=== PATIENT | female | born 1995 | race Caucasian/White ===

== ENCOUNTER 2018-06-24 18:15 | Emergency (ER) | payer SELFPAY ==
[2018-06-24 18:38] VITALS: O2SAT 97
--- NOTE | 2018-06-24 18:48 | ERPHSYRPT ---
- History of Present Illness Time Seen by Provider: 06/24/18 18:35 Source: patient, family Exam Limitations: no limitations Patient Subjective Stated Complaint: pt states she was sitting on her couch today when she had sharp, shooting back down both sides of her lower back, states pain is intermittent in nature reports she is 2 weeks and is concerned. states her initial OB appt is Jul [address] Leon. pt denies injury , pt denies heavy lifting or straining. pt denies symptoms. pt denies any vaginal bleeding or discharge. Triage Nursing Assessment: pt is aox3, pupils perrl, afebrile, resps easy and non labored, radial pulses strong and equal, abd soft non tender, pt skin pink warm dry. pt sensation and ROM intact. pt ambulated to trt room with no difficulties. Physician History: patient developed a sharp pain in upper lower back; lasted 2-3 minutes while sitting; no recent falls or injuries; no hx of back issues other then intermittant lower back pain; no numbness; no weakness; no sensory changes; she is 2 weeks ; EDC ?; no vag bleeding; last intercourse 4 weeks ago ; no or GI changes; otherwise healthy Timing/Duration: today, resolved prior to arrival, sudden, improved Method of Injury: other (occurred while sitting) Quality: radiating (to lower back midline), sharp Back Pain Location: lumbar spine Severity of Pain-Max: moderate Severity of Pain-Current: none Modifying Factors: Improves With: nothing Associated Symptoms: denies symptoms Previous symptoms: no prior history Allergies/Adverse Reactions: tramadol Allergy (Mild, Verified 06/24/18 18:39) Swelling Hx Tetanus, Diphtheria Vaccination/Date Given: Yes Hx Influenza Vaccination/Date Given: No Hx Pneumococcal Vaccination/Date Given: No Immunizations Up to Date: Yes - Review of Systems Constitutional: No Symptoms Eyes: No Symptoms Ears, Nose, & Throat: No Symptoms Respiratory: No Cough, No Dyspnea, No Wheezing Cardiac: No Chest Pain, No Palpitations, No Syncope Abdominal/Gastrointestinal: No Abdominal Pain, No Nausea, No Vomiting, No Diarrhea Genitourinary Symptoms: No Dysuria, No Hematuria, No Incontinence, No Urinary Retention, No Flank Pain Musculoskeletal: Back Pain, No Arthralgias, No Neck Pain, No Fall, No Injury Skin: No Symptoms Neurological: No Dizziness, No Focal Weakness, No Gait Changes, No Headache, No Paralysis, No Parasthesia, No Seizure, No Sensory Changes Psychological: No Symptoms - Past Medical History Pertinent Past Medical History: Yes Neurological History: No Pertinent History ENT History: No Pertinent History Cardiac History: No Pertinent History Respiratory History: No Pertinent History Endocrine Medical History: No Pertinent History Musculoskeletal History: No Pertinent History GI Medical History: Gallbladder Disease History: No Pertinent History Psycho-Social History: No Pertinent History Female Reproductive Disorders: No Pertinent History Other Medical History: GESTATIONAL DM - Past Surgical History Past Surgical History: Yes Neuro Surgical History: No Pertinent History Cardiac: No Pertinent History Respiratory: No Pertinent History Gastrointestinal: Cholecystectomy Genitourinary: No Pertinent History Musculoskeletal: No Pertinent History Female Surgical History: Section, Other Other Surgical History: REMOVED FIBROID MASS FROM LEFT BREAST. x 2 - Social History Smoking Status: Former smoker Exposure to second hand smoke: Yes Alcohol Use: None Drug Use: none Patient Lives Alone: No Significant Family History: no pertinent family hx - Female History Hx Last Menstrual Period: 05/18/19 Hx Now: Yes - Nursing Vital Signs Nursing Vital Signs: Initial Vital Signs Temperature 98.5 F 06/24/18 18:24 Pulse Rate 88 06/24/18 18:24 Respiratory Rate 20 06/24/18 18:24 Blood Pressure 123/73 06/24/18 18:24 O2 Sat by Pulse Oximetry 97 06/24/18 18:24 Pain Scale Pain Intensity 0 - Physical Exam General Appearance: no apparent distress, alert, obese Eye Exam: PERRL/EOMI, eyes nml inspection Ears, Nose, Throat Exam: normal ENT inspection, TMs normal, pharynx normal, moist mucous membranes Neck Exam: normal inspection, non-tender, supple, full range of motion, No meningismus Respiratory Exam: normal breath sounds, lungs clear, airway intact, No chest tenderness, No respiratory distress Cardiovascular Exam: regular rate/rhythm, normal heart sounds, normal peripheral pulses, No murmur Gastrointestinal Exam: soft, normal bowel sounds, No tenderness, No guarding, No rebound, No organomegaly Pelvic Exam: deferred Rectal Exam: deferred Back Exam: normal range of motion, muscle spasm (with ST tenderness where pain was, duplicates), other (LS extension improves discomfort; straight leg raising good and = bilateral; good refelexes), No normal inspection (straightening with loss of Normal LS curve), No CVA tenderness, No vertebral tenderness, No rash Extremity Exam: normal inspection, normal range of motion, pelvis stable, No marybel's sign, No pedal edema Peripheral Pulses: carotid (R): 4+, carotid (L): 4+, femoral (R): 4+, femoral (L ): 4+, dorsalis-pedis (R): 4+, dorsalis-pedis (L): 4+ Neurologic Exam: alert, oriented x 3, cooperative, wire transfer clerk II-XII nml as tested, normal mood/affect, nml cerebellar function, nml station & gait Skin Exam: normal color, warm, dry, No rash, No petechiae SpO2 Interpretation: normal SpO2: 97 O2 Delivery: Room Air - Course Nursing assessment & vital signs reviewed: Yes - Progress Progress: improved Progress Note: 06/24/18 18:54 discussed findings; treatment plan discussed; instructions given; will follow up with lmd for ob Counseled pt/family regarding: diagnosis, need for follow-up - Departure Time of Disposition: 18:55 Departure Disposition: Home Clinical Impression: First trimester , Low back pain during Condition: Stable Critical Care Time: No Referrals: LAI LEON [Primary Care Provider] - Instructions: Low Back Pain (DC) Additional Instructions: rest; back support; follow up lmd recheck; tylenol prn Follow-up with family doctor as directed. Call for appointment. Return if any problems. If you smoke please stop. Call or follow up with your family doctor for assistance if you need it to stop. Please wear your seatbelt when driving. Have a nice day. Thank you for allowing us to participate in your care today. :o) Dr Manny Yu
[2018-06-24 19:10] VITALS: BP 113/67; PULSE 100
== END 2018-06-24 19:08 | disposition home or self-care (01) ==
LOC: ED 18:15
DX: O26.891 Other specified pregnancy related conditions, first trimester (principal); M54.5 Low back pain
CPT/HCPCS: 99283

== ENCOUNTER 2018-11-01 15:20 | Observation (INO) | payer OTHER ==
[2018-11-01 15:43] LABS: BASOPHIL % 0.3 % (0.0-0.4); Basophil (Absolute #) 0.03 (0-0.4); Eosinophil (Absolute #) 0.12 (0-0.5); Granulocyte Absolute (ANC) 8.69 (1.4-6.9); Granulocytes % 73.8 % (36.0-66.0); Hematocrit 29.3 % (35-47); Hemoglobin 9.5 gm/dl (12.0-16.0); Lymphocyte (Absolute #) 2.37 (1.0-4.6); Lymphocytes % 20.2 % (24.0-44.0); Mean Cell Volume 90.4 fl (78-100); Mean Corpuscular Hemoglobin 29.3 pg (26-32); Mean Corpuscular Hgb Concent. 32.4 g/dl (32-36); Mean Platelet Volume 10.3 fl (6-9.5); Monocyte (Absolute #) 0.55 (0.0-1.3); Monocytes % 4.7 % (0.0-12.0); Platelet Count 283 K/mm3 (150-450); Red Blood Count 3.24 M/mm3 (4.1-5.4); Red Cell Distribution Width 15.2 % (11.5-14.0); White Blood Count 11.8 K/mm3 (4.0-10.5)
[2018-11-01 15:54] LABS: ANION GAP 13.6 MEQ/L (5-15); BLOOD UREA NITROGEN 4 mg/dL (7-17); CHLORIDE 106 mmol/L (98-107); Calcium 9.3 mg/dL (8.4-10.2); Carbon Dioxide 23 mmol/L (22-30); Creatinine 1 0.39 mg/dL (0.52-1.04); Glucose 103 mg/dL (74-106); Potassium 3.8 mmol/L (3.5-5.1); SODIUM 139 mmol/L (137-145)
[2018-11-01 16:15] LABS: Appearance CLEAR (CLEAR); Bacteria RARE /HPF (NEGATIVE); Bilirubin NEGATIVE (NEGATIVE); Blood NEGATIVE Ery/ul (0-5); Glucose NEGATIVE (NEGATIVE); Ketones NEGATIVE (NEGATIVE); Leukocyte Esterase NEGATIVE (NEGATIVE); Nitrite NEGATIVE (NEGATIVE); Protein,Urine Dip NEGATIVE (Negative); Specific Gravity 1.005 (1.005-1.025); Urobilinogen NEGATIVE mg/dL (0-1); WBC 0-2 /HPF (0-5)
[2018-11-01 16:16] LABS: RBC NONE SEEN /HPF (0-2)
[2018-11-01] MEDS ORDERED: Lactated Ringers 1,000 ML IV ONE (17:49)
[2018-11-01] MEDS ORDERED: Phenergan 25 MG INJ IV ONE (17:50)
[2018-11-02] MEDS ORDERED: ZOFRAN ODT 4 MG PO PRN (09:23)
[2018-11-02 10:01] VITALS: BP 104/58; PULSE 85
== END 2018-11-02 12:15 | disposition home or self-care (01) ==
LOC: OB 15:20
PROVIDERS: ADMIT Family Medicine; ATTEND Family Medicine
DX: Z34.82 Encounter for supervision of other normal pregnancy, second trimester (principal)
CPT/HCPCS: 36415; 80048; 81001; 85025; G0378; J2550; Q0162

== ENCOUNTER 2018-11-03 11:16 | Observation (INO) | payer OTHER ==
[2018-11-03] MEDS ORDERED: Zofran 4 MG/2 ML VIAL IV PRN (11:32)
[2018-11-03 11:57] LABS: Hematocrit 29.5 % (35-47); Hemoglobin 9.4 gm/dl (12.0-16.0); Mean Cell Volume 92.5 fl (78-100); Mean Corpuscular Hemoglobin 29.4 pg (26-32); Mean Corpuscular Hgb Concent. 31.9 g/dl (32-36); Mean Platelet Volume 10.3 fl (6-9.5); Platelet Count 246 K/mm3 (150-450); Red Blood Count 3.19 M/mm3 (4.1-5.4); Red Cell Distribution Width 15.3 % (11.5-14.0); White Blood Count 8.6 K/mm3 (4.0-10.5)
[2018-11-03] MEDS ORDERED: Lactated Ringers 1,000 ML IV SCH ×2 (12:00→13:00)
[2018-11-03 12:03] LABS: Appearance SLIGHTLY CLOUDY (CLEAR); Bacteria RARE /HPF (NEGATIVE); Bilirubin NEGATIVE (NEGATIVE); Blood NEGATIVE Ery/ul (0-5); Epithelial Cells RARE /HPF (FEW); Glucose NEGATIVE (NEGATIVE); Ketones NEGATIVE (NEGATIVE); Leukocyte Esterase NEGATIVE (NEGATIVE); Mucus SLIGHT /HPF (NEGATIVE); Nitrite NEGATIVE (NEGATIVE); Protein,Urine Dip NEGATIVE (Negative); Specific Gravity 1.009 (1.005-1.025); Urobilinogen NEGATIVE mg/dL (0-1)
[2018-11-03 12:13] LABS: ALBUMIN 3.3 g/dL (3.5-5.0); ALKALINE PHOSPHATASE 92 U/L (38-126); ANION GAP 15.8 MEQ/L (5-15); BLOOD UREA NITROGEN 3 mg/dL (7-17); CHLORIDE 104 mmol/L (98-107); Calcium 9.6 mg/dL (8.4-10.2); Carbon Dioxide 25 mmol/L (22-30); Creatinine 1 0.49 mg/dL (0.52-1.04); Glucose 173 mg/dL (74-106); Potassium 3.8 mmol/L (3.5-5.1); SGOT/AST 10 U/L (14-36); SGPT/ALT 8 U/L (0-35); SODIUM 141 mmol/L (137-145); Total Protein 6.8 g/dL (6.3-8.2)
[2018-11-03 12:33] LABS: ANISOCYTOSIS 1+; Eosinophil 2 % (0.00-3.0); Lymphocytes 17 % (24-44); Microcytosis 1+; Neutrophils 81 % (36.0-66.0); Platelet Estimate NORMAL (NORMAL); Polychromasia RARE; Total Cells Counted 100
[2018-11-03 17:27] VITALS: BP 110/55; PULSE 75
== END 2018-11-03 21:15 | disposition home or self-care (01) ==
LOC: OB 11:16
PROVIDERS: ADMIT Family Medicine; ATTEND Family Medicine
DX: Z34.82 Encounter for supervision of other normal pregnancy, second trimester (principal)
CPT/HCPCS: 36415; 80053; 81001; 82962; 85025; G0378; J2405

== ENCOUNTER 2018-12-13 05:42 | Observation (INO) | payer OTHER ==
[2018-12-13 06:15] VITALS: PULSE 90; O2SAT 98
[2018-12-13 07:01] LABS: Appearance SLIGHTLY CLOUDY (CLEAR); Specific Gravity 1.011 (1.005-1.025)
[2018-12-13 07:02] LABS: Bacteria NONE SEEN /HPF (NEGATIVE); Bilirubin NEGATIVE (NEGATIVE); Blood NEGATIVE Ery/ul (0-5); Epithelial Cells RARE /HPF (FEW); Glucose NEGATIVE (NEGATIVE); Ketones NEGATIVE (NEGATIVE); Leukocyte Esterase NEGATIVE (NEGATIVE); Mucus SLIGHT /HPF (NEGATIVE); Nitrite NEGATIVE (NEGATIVE); Protein,Urine Dip NEGATIVE (Negative); Urobilinogen NORMAL mg/dL (0-1); WBC 0-2 /HPF (0-5)
[2018-12-13 07:14] LABS: Amphetamine,Urine NEGATIVE (NEGATIVE); Barbiturate,Urine NEGATIVE (NEGATIVE); Benzodiazepine,Urine NEGATIVE (NEGATIVE); Cocaine,Urine NEGATIVE (NEGATIVE); Methadone,Urine NEGATIVE (NEGATIVE); Opiate,Urine NEGATIVE (NEGATIVE); PCP,Urine NEGATIVE (NEGATIVE); THC,Urine NEGATIVE (NEGATIVE)
[2018-12-13] MEDS ORDERED: Lactated Ringers 1,000 ML IV ONE (07:20)
[2018-12-13] MEDS ORDERED: Lactated Ringers 1,000 ML IV SCH (07:30)
[2018-12-13 08:40] VITALS: BP 115/62
--- NOTE | 2018-12-13 11:15 | XRAY ---
Indication: Progression of labor. Evaluate cervical length. Limited OB ultrasound demonstrates single viable intrauterine with heart rate 119 BPM. Cervix is closed with cervical length measuring 4.3 cm.
== END 2018-12-13 11:30 | disposition home or self-care (01) ==
LOC: OB 05:42
PROVIDERS: ADMIT Family Medicine; ATTEND Family Medicine
DX: Z34.83 Encounter for supervision of other normal pregnancy, third trimester (principal)
CPT/HCPCS: 76815; 80307; 81001; 82962; 83986; G0378

== ENCOUNTER 2018-12-17 15:07 | Observation (INO) | payer OTHER ==
[2018-12-17 16:05] VITALS: O2SAT 97
--- NOTE | 2018-12-17 16:21 | XRAY ---
Indication: Right leg pain. Two-dimensional sonogram and color Doppler imaging of the major venous vessels of the right leg was performed. Comparison: None No thrombus seen in the examined deep venous vessels of the right leg including greater saphenous vein. Veins demonstrate normal compressibility. Venous waveforms are normal with and without augmentation. Impression: Right leg negative for DVT.
[2018-12-17 17:30] LABS: ALBUMIN 3.6 g/dL (3.5-5.0); ALKALINE PHOSPHATASE 120 U/L (38-126); ANION GAP 11.8 MEQ/L (5-15); BLOOD UREA NITROGEN 4 mg/dL (7-17); CHLORIDE 106 mmol/L (98-107); Calcium 9.7 mg/dL (8.4-10.2); Carbon Dioxide 25 mmol/L (22-30); Creatinine 1 0.47 mg/dL (0.52-1.04); Glucose 112 mg/dL (74-106); Potassium 3.7 mmol/L (3.5-5.1); SGOT/AST 8 U/L (14-36); SGPT/ALT 6 U/L (0-35); SODIUM 139 mmol/L (137-145); Total Protein 7.2 g/dL (6.3-8.2)
[2018-12-17 17:46] VITALS: BP 113/66; PULSE 79
== END 2018-12-17 17:20 | disposition home or self-care (01) ==
LOC: RAD 15:07 → EDSTATUS 15:52 → OB 15:52
PROVIDERS: ADMIT Family Medicine; ATTEND Family Medicine
DX: Z34.83 Encounter for supervision of other normal pregnancy, third trimester (principal); M79.604 Pain in right leg
CPT/HCPCS: 36415; 59025; 80053; 81003; 84550; 85025; 93971; G0378

== ENCOUNTER 2019-01-06 15:22 | Observation (INO) | payer OTHER ==
[2019-01-06 16:01] LABS: Appearance SLIGHTLY CLOUDY (CLEAR); Bilirubin NEGATIVE (NEGATIVE); Blood NEGATIVE Ery/ul (0-5); Epithelial Cells RARE /HPF (FEW); Glucose NEGATIVE (NEGATIVE); Ketones TRACE (NEGATIVE); Leukocyte Esterase NEGATIVE (NEGATIVE); Mucus SLIGHT /HPF (NEGATIVE); Nitrite NEGATIVE (NEGATIVE); Protein,Urine Dip 30 (Negative); Specific Gravity 1.019 (1.005-1.025); Urobilinogen 2 mg/dL (0-1)
[2019-01-06 16:03] VITALS: BP 117/66; PULSE 88
[2019-01-06 16:21] LABS: BASOPHIL % 0.2 % (0.0-0.4); Basophil (Absolute #) 0.02 (0-0.4); Eosinophil % 0.7 % (0.00-5.0); Eosinophil (Absolute #) 0.07 (0-0.5); Granulocyte Absolute (ANC) 7.43 (1.4-6.9); Granulocytes % 76.6 % (36.0-66.0); Hematocrit 28.8 % (35-47); Hemoglobin 9.3 gm/dl (12.0-16.0); Lymphocyte (Absolute #) 1.81 (1.0-4.6); Lymphocytes % 18.6 % (24.0-44.0); Mean Cell Volume 90.6 fl (78-100); Mean Corpuscular Hemoglobin 29.2 pg (26-32); Mean Corpuscular Hgb Concent. 32.3 g/dl (32-36); Mean Platelet Volume 10.7 fl (6-9.5); Monocyte (Absolute #) 0.38 (0.0-1.3); Monocytes % 3.9 % (0.0-12.0); Platelet Count 230 K/mm3 (150-450); Red Blood Count 3.18 M/mm3 (4.1-5.4); Red Cell Distribution Width 15.5 % (11.5-14.0); White Blood Count 9.7 K/mm3 (4.0-10.5)
--- NOTE | 2019-01-06 16:42 | XRAY ---
Indication: growth. Two-dimensional OB ultrasound performed. Comparison: December 11, 2018. Again there is a single viable intrauterine now in breech presentation. heart rate 150 BPM. anatomy previously documented. Visualized stomach and bladder are unremarkable. Again posterior fundal placenta without abruption/previa. BPD measures 8.91 cm corresponding to 36 weeks 0 days. HC measures 32.19 cm corresponding to 36 weeks 2 days. AC measures 32.68 cm corresponding to 36 weeks 4 days. FL measures 7.08 cm correspond to 36 weeks 2 days. Estimated weight 6 lbs. 7 oz., +/-1 lb. 0 oz. Approximately 97 percentile. ENEIDA is 13.3 cm. Impression: Again single viable intrauterine with mean gestational age 36 weeks 2 days. Fetus now measures 7 days larger compared to the previous study and 14 days larger compared to first exam October 07, 2018.
--- NOTE | 2019-01-06 16:44 | XRAY ---
Indication: Decreased movement. Ultrasound biophysical profile study was performed. There is a single viable intrauterine with OB ultrasound reported separately. heart rate 150 BPM. 4 quadrant ENEIDA is 13.3 cm. 2 points given for breathing, movements, tone, and qualitative amniotic fluid volume. Impression: Total biophysical profile score is 8 out of 8.
[2019-01-06 16:45] LABS: ALBUMIN 3.3 g/dL (3.5-5.0); ALKALINE PHOSPHATASE 130 U/L (38-126); ANION GAP 12.1 MEQ/L (5-15); BLOOD UREA NITROGEN 4 mg/dL (7-17); CHLORIDE 103 mmol/L (98-107); Calcium 9.3 mg/dL (8.4-10.2); Carbon Dioxide 25 mmol/L (22-30); Creatinine 1 0.47 mg/dL (0.52-1.04); Glucose 191 mg/dL (74-106); Potassium 3.7 mmol/L (3.5-5.1); SGOT/AST 10 U/L (14-36); SGPT/ALT 9 U/L (0-35); SODIUM 137 mmol/L (137-145); Total Protein 6.6 g/dL (6.3-8.2)
== END 2019-01-06 18:00 | disposition home or self-care (01) ==
LOC: OB 15:22
PROVIDERS: ADMIT Family Medicine; ATTEND Family Medicine
DX: Z34.83 Encounter for supervision of other normal pregnancy, third trimester (principal)
CPT/HCPCS: 36415; 59025; 76805; 76818; 80053; 81001; 85025; G0378

== ENCOUNTER 2019-01-09 17:00 | Observation (INO) | payer OTHER ==
[2019-01-09] MEDS ORDERED: Lactated Ringers 1,000 ML IV ONE (17:15)
[2019-01-09] MEDS ORDERED: Zofran 4 MG/2 ML VIAL IV PRN (17:15)
[2019-01-09 17:23] LABS: BASOPHIL % 0.2 % (0.0-0.4); Basophil (Absolute #) 0.02 (0-0.4); Eosinophil % 0.7 % (0.00-5.0); Eosinophil (Absolute #) 0.07 (0-0.5); Granulocyte Absolute (ANC) 7.22 (1.4-6.9); Granulocytes % 74.6 % (36.0-66.0); Hematocrit 31.1 % (35-47); Lymphocyte (Absolute #) 1.79 (1.0-4.6); Lymphocytes % 18.5 % (24.0-44.0); Mean Cell Volume 89.9 fl (78-100); Mean Corpuscular Hemoglobin 28.9 pg (26-32); Mean Corpuscular Hgb Concent. 32.2 g/dl (32-36); Mean Platelet Volume 10.6 fl (6-9.5); Monocyte (Absolute #) 0.58 (0.0-1.3); Platelet Count 253 K/mm3 (150-450); Red Blood Count 3.46 M/mm3 (4.1-5.4); Red Cell Distribution Width 15.5 % (11.5-14.0); White Blood Count 9.7 K/mm3 (4.0-10.5)
[2019-01-09 17:36] LABS: ALBUMIN 3.5 g/dL (3.5-5.0); ALKALINE PHOSPHATASE 145 U/L (38-126); ANION GAP 13.7 MEQ/L (5-15); BLOOD UREA NITROGEN 3 mg/dL (7-17); CHLORIDE 107 mmol/L (98-107); Calcium 9.4 mg/dL (8.4-10.2); Carbon Dioxide 23 mmol/L (22-30); Creatinine 1 0.39 mg/dL (0.52-1.04); Glucose 112 mg/dL (74-106); Potassium 3.9 mmol/L (3.5-5.1); SGOT/AST 10 U/L (14-36); SGPT/ALT 9 U/L (0-35); SODIUM 139 mmol/L (137-145); Total Protein 7.2 g/dL (6.3-8.2)
[2019-01-09 19:08] LABS: Appearance CLEAR (CLEAR); Bilirubin NEGATIVE (NEGATIVE); Blood NEGATIVE Ery/ul (0-5); Glucose NEGATIVE (NEGATIVE); Ketones NEGATIVE (NEGATIVE); Leukocyte Esterase NEGATIVE (NEGATIVE); Nitrite NEGATIVE (NEGATIVE); Protein,Urine Dip NEGATIVE (Negative); Specific Gravity 1.002 (1.005-1.025); Urobilinogen NEGATIVE mg/dL (0-1)
[2019-01-09 19:21] LABS: Amphetamine,Urine NEGATIVE (NEGATIVE); Barbiturate,Urine NEGATIVE (NEGATIVE); Benzodiazepine,Urine NEGATIVE (NEGATIVE); Cocaine,Urine NEGATIVE (NEGATIVE); Methadone,Urine NEGATIVE (NEGATIVE); Opiate,Urine NEGATIVE (NEGATIVE); PCP,Urine NEGATIVE (NEGATIVE); THC,Urine NEGATIVE (NEGATIVE)
[2019-01-09 20:28] VITALS: BP 101/61; PULSE 81; O2SAT 96
== END 2019-01-09 20:06 | disposition home or self-care (01) ==
LOC: MED SURG 17:00 → UNDOADMOB 17:00 → UNDODISOB 20:06
PROVIDERS: ADMIT Family Medicine; ATTEND Family Medicine
DX: O21.9 Vomiting of pregnancy, unspecified (principal); Z3A.34 34 weeks gestation of pregnancy
CPT/HCPCS: 36415; 80053; 80307; 81001; 85025; G0378; J2405

== ENCOUNTER 2019-01-14 08:39 | Observation (INO) | payer OTHER ==
[2019-01-14 09:30] VITALS: BP 108/58; PULSE 78
== END 2019-01-14 09:29 | disposition home or self-care (01) ==
LOC: OB 08:39
PROVIDERS: ADMIT Family Medicine; ATTEND Family Medicine
DX: O24.913 Unspecified diabetes mellitus in pregnancy, third trimester (principal); O36.63X0 Maternal care for excessive fetal growth, third trimester, not applicable or unspecified; Z3A.35 35 weeks gestation of pregnancy
CPT/HCPCS: 59025; G0378

== ENCOUNTER 2019-01-17 08:58 | Observation (INO) | payer OTHER | END 2019-01-17 10:42 | disposition home or self-care (01) | LOC: OB 08:58 ==

== ENCOUNTER 2019-01-28 15:46 | Observation (INO) | payer OTHER ==
--- NOTE | 2019-01-28 16:37 | XRAY ---
Indication: Evaluate growth and ENEIDA. Two-dimensional OB ultrasound performed. Comparison: January 16, 2019. Again there is a single viable intrauterine in cephalic presentation. heart rate 159 BPM. anatomy previously documented. BPD measures 9.4 cm corresponding to 38 weeks 3 days. HC measures 33.6 cm corresponding to 38 weeks 3 days. AC measures 34.5 cm corresponding to 38 weeks 3 days. FL measures 7.2 cm correspond to 36 weeks 6 day. ENEIDA is 16.8 cm. Impression: Again single viable intrauterine with mean gestational age 38 weeks 0 days.
[2019-01-28] MEDS ORDERED: Rocephin 1000 MG INJ IM ONE (17:03)
[2019-01-28 17:05] VITALS: PULSE 81
[2019-01-28] MEDS ORDERED: XYLOCAINE 1% HCL 20 ML MDV IJ PRN (17:12)
[2019-01-28 18:06] VITALS: BP 110/70
== END 2019-01-28 17:55 | disposition home or self-care (01) ==
LOC: RAD 15:46 → EDSTATUS 15:59 → OB 15:59
PROVIDERS: ADMIT Family Medicine; ATTEND Family Medicine
DX: O24.419 Gestational diabetes mellitus in pregnancy, unspecified control (principal); O36.63X0 Maternal care for excessive fetal growth, third trimester, not applicable or unspecified; Z3A.38 38 weeks gestation of pregnancy
CPT/HCPCS: 59025; 76805; 96372; G0378; J0696

== ENCOUNTER 2019-01-31 00:01 | Inpatient (IN) | payer OTHER ==
[2019-01-31 15:56] LABS: Appearance SLIGHTLY CLOUDY (CLEAR); Bilirubin NEGATIVE (NEGATIVE); Blood NEGATIVE Ery/ul (0-5); Epithelial Cells FEW /HPF (FEW); Glucose NEGATIVE (NEGATIVE); Ketones NEGATIVE (NEGATIVE); Leukocyte Esterase NEGATIVE (NEGATIVE); Mucus SLIGHT /HPF (NEGATIVE); Nitrite NEGATIVE (NEGATIVE); Protein,Urine Dip NEGATIVE (Negative); Specific Gravity 1.005 (1.005-1.025); Urobilinogen NEGATIVE mg/dL (0-1)
[2019-01-31 16:08] LABS: Bacteria NONE SEEN /HPF (NEGATIVE)
[2019-01-31] MEDS ORDERED: Lactated Ringers 1,000 ML IV ONE (17:15)
[2019-01-31 17:48] LABS: BASOPHIL % 0.2 % (0.0-0.4); Basophil (Absolute #) 0.02 (0-0.4); Eosinophil % 0.8 % (0.00-5.0); Eosinophil (Absolute #) 0.08 (0-0.5); Granulocyte Absolute (ANC) 7.41 (1.4-6.9); Hematocrit 30.8 % (35-47); Hemoglobin 9.9 gm/dl (12.0-16.0); Lymphocyte (Absolute #) 1.72 (1.0-4.6); Lymphocytes % 17.6 % (24.0-44.0); Mean Cell Volume 89.3 fl (78-100); Mean Corpuscular Hgb Concent. 32.1 g/dl (32-36); Monocyte (Absolute #) 0.53 (0.0-1.3); Monocytes % 5.4 % (0.0-12.0); Platelet Count 265 K/mm3 (150-450); Red Blood Count 3.45 M/mm3 (4.1-5.4); White Blood Count 9.8 K/mm3 (4.0-10.5)
[2019-01-31 17:51] LABS: Mean Corpuscular Hemoglobin 28.6 pg (26-32)
[2019-01-31] MEDS: Merrem 1 GM 1 G in Sodium Chloride 100ML MINI-BAG PLUS 100 ML IV SCH (18:00)
[2019-01-31 18:14] LABS: ALBUMIN 3.4 g/dL (3.5-5.0); ALKALINE PHOSPHATASE 180 U/L (38-126); BLOOD UREA NITROGEN 5 mg/dL (7-17); CHLORIDE 107 mmol/L (98-107); Calcium 9.2 mg/dL (8.4-10.2); Carbon Dioxide 23 mmol/L (22-30); Creatinine 1 0.48 mg/dL (0.52-1.04); Glucose 99 mg/dL (74-106); Potassium 3.4 mmol/L (3.5-5.1); SGOT/AST 17 U/L (14-36); SGPT/ALT 8 U/L (0-35); SODIUM 138 mmol/L (137-145)
[2019-01-31] MEDS: Lactated Ringers 1,000 ML IV SCH (20:17)
[2019-01-31 20:44] LABS: ANION GAP 12.5 MEQ/L (5-15); BLOOD UREA NITROGEN 5 mg/dL (7-17); CHLORIDE 105 mmol/L (98-107); Calcium 9.1 mg/dL (8.4-10.2); Carbon Dioxide 24 mmol/L (22-30); Creatinine 1 0.46 mg/dL (0.52-1.04); Glucose 170 mg/dL (74-106); Potassium 3.4 mmol/L (3.5-5.1); SODIUM 138 mmol/L (137-145)
[2019-01-31] MEDS: VANCOCIN 1 GM VIAL*** 1 GM in Sodium Chloride 0.9% 250 ML 250 ML IV SCH (20:58)
[2019-02-01] MEDS: Merrem 1 GM 1 G in Sodium Chloride 100ML MINI-BAG PLUS 100 ML IV SCH ×3 (01:55→17:30)
[2019-02-01 05:03] LABS: ANION GAP 11.1 MEQ/L (5-15); BLOOD UREA NITROGEN 4 mg/dL (7-17); CHLORIDE 108 mmol/L (98-107); Calcium 9.1 mg/dL (8.4-10.2); Carbon Dioxide 23 mmol/L (22-30); Creatinine 1 0.46 mg/dL (0.52-1.04); Glucose 110 mg/dL (74-106); Potassium 3.5 mmol/L (3.5-5.1); SODIUM 139 mmol/L (137-145)
[2019-02-01] MEDS: VANCOCIN 1 GM VIAL*** 1 GM in Sodium Chloride 0.9% 250 ML 250 ML IV SCH ×2 (08:46→20:55)
[2019-02-01] MEDS: Lactated Ringers 1,000 ML IV SCH (17:31)
[2019-02-01] MEDS ORDERED: ZOFRAN ODT 4 MG PO PRN (21:04)
[2019-02-02] MEDS: Merrem 1 GM 1 G in Sodium Chloride 100ML MINI-BAG PLUS 100 ML IV SCH ×3 (01:46→17:31)
[2019-02-02] MEDS ORDERED: TROUGH DRUG LEVELS IJ ONE (08:30)
[2019-02-02] MEDS: VANCOCIN 1 GM VIAL*** 1 GM in Sodium Chloride 0.9% 250 ML 250 ML IV SCH ×2 (09:18→21:00)
[2019-02-02] MEDS ORDERED: [UNRECOGNIZED DRUG - OTHER] PO SCH (10:00)
[2019-02-02] MEDS ORDERED: PRENATAL VIT PO SCH (10:00)
[2019-02-02] MEDS ORDERED: FERROUS FUM PO SCH (10:00)
[2019-02-02] MEDS: PHENERGAN 25 MG PO SCH ×2 (11:44→21:00)
[2019-02-02] MEDS: FEOSOL 325 MG PO SCH (11:44)
[2019-02-02] MEDS: THERAGRAN MULTIVITAMIN PO SCH (11:44)
[2019-02-02] MEDS ORDERED: TYLENOL 325 MG PO STA (12:11)
[2019-02-02] MEDS: Lactated Ringers 1,000 ML IV SCH (17:31)
[2019-02-02] MEDS ORDERED: TYLENOL 325 MG PO PRN (23:28)
[2019-02-03 00:11] LABS: Hematocrit 29.3 % (35-47); Hemoglobin 9.2 gm/dl (12.0-16.0); Mean Corpuscular Hgb Concent. 31.4 g/dl (32-36); Mean Platelet Volume 11.5 fl (6-9.5); Platelet Count 247 K/mm3 (150-450); Red Blood Count 3.22 M/mm3 (4.1-5.4); Red Cell Distribution Width 15.3 % (11.5-14.0); White Blood Count 10.1 K/mm3 (4.0-10.5)
[2019-02-03 00:17] LABS: Mean Corpuscular Hemoglobin 28.5 pg (26-32)
[2019-02-03 00:20] LABS: INR 0.97 (0.8-3.0)
[2019-02-03 00:22] LABS: PTT 29.3 SECONDS (25.3-37.0)
[2019-02-03 00:54] LABS: ABO TYPING 0; Antibody Screen NEGATIVE (NEGATIVE); RH TYPING POSITIVE
[2019-02-03] MEDS: Lactated Ringers 1,000 ML IV SCH ×2 (01:00→06:57)
[2019-02-03 01:15] LABS: Appearance SLIGHTLY CLOUDY (CLEAR); Bilirubin NEGATIVE (NEGATIVE); Blood NEGATIVE Ery/ul (0-5); Epithelial Cells RARE /HPF (FEW); Glucose NEGATIVE (NEGATIVE); Ketones NEGATIVE (NEGATIVE); Leukocyte Esterase NEGATIVE (NEGATIVE); Mucus SLIGHT /HPF (NEGATIVE); Nitrite NEGATIVE (NEGATIVE); Protein,Urine Dip NEGATIVE (Negative); Urobilinogen NEGATIVE mg/dL (0-1); WBC 0-2 /HPF (0-5)
[2019-02-03 01:25] LABS: Amphetamine,Urine NEGATIVE (NEGATIVE); Barbiturate,Urine NEGATIVE (NEGATIVE); Benzodiazepine,Urine NEGATIVE (NEGATIVE); Cocaine,Urine NEGATIVE (NEGATIVE); Methadone,Urine NEGATIVE (NEGATIVE); Opiate,Urine NEGATIVE (NEGATIVE); PCP,Urine NEGATIVE (NEGATIVE); THC,Urine NEGATIVE (NEGATIVE)
[2019-02-03] MEDS: Merrem 1 GM 1 G in Sodium Chloride 100ML MINI-BAG PLUS 100 ML IV SCH ×3 (01:58→21:10)
[2019-02-03] MEDS ORDERED: CEFAZOLIN 2 GM-D5W BAG** 2 GM/50 ML ML IV SCH ×2 (02:00)
[2019-02-03] MEDS ORDERED: Pepcid 20 MG VIAL IV SCH ×2 (06:30)
[2019-02-03] MEDS ORDERED: Reglan 10 MG/2 ML IV SCH ×2 (06:30)
[2019-02-03] MEDS ORDERED: BICITRA 30 ML CUP PO SCH ×2 (06:30)
[2019-02-03] MEDS ORDERED: Lactated Ringers 1,000 ML IV SCH ×2 (06:30)
[2019-02-03] MEDS ORDERED: Lactated Ringers 1,000 ML IV ONE (07:22)
[2019-02-03] MEDS ORDERED: Astramorph-Pf 5 MG/10 ML ONE (07:59)
[2019-02-03] MEDS ORDERED: Pitocin 10 UNITS/ML ONE (08:00)
[2019-02-03] MEDS ORDERED: Decadron 4 MG INJ ONE (08:00)
[2019-02-03] MEDS ORDERED: Xylocaine-Mpf 2% 5 Ml Vial ONE ×2 (08:00→08:04)
[2019-02-03] MEDS ORDERED: Naropin 0.5% 30 ML VIAL ONE (08:00)
[2019-02-03] MEDS ORDERED: Zofran 4 MG/2 ML VIAL ONE (08:00)
[2019-02-03] MEDS ORDERED: Marcaine Spinal Ampul IJ ONE (08:04)
[2019-02-03] MEDS ORDERED: BREVIBLOC 100 MG/10 ML IV ONE (08:16)
[2019-02-03] MEDS ORDERED: Sodium Chloride 0.9% 10 ML FLUSH Syringe IJ PRN (09:22)
[2019-02-03] MEDS ORDERED: Narcan 0.4 MG/ML IV PRN (09:22)
[2019-02-03] MEDS ORDERED: Dulcolax 10 MG SUPP PR PRN (09:27)
[2019-02-03] MEDS ORDERED: Anucort-HC SUPPOSITORY PR PRN (09:27)
[2019-02-03] MEDS ORDERED: TYLENOL EXTRA STRENGTH 500 MG PO PRN (09:27)
[2019-02-03] MEDS ORDERED: TUCKS TP PRN (09:27)
[2019-02-03] MEDS ORDERED: CORTISONE 1% CREAM TP PRN (09:27)
[2019-02-03] MEDS ORDERED: HOLD NARCOTIC ANALGESICS AND SEDATIVES X24 HR MC PRN (10:00)
[2019-02-03] MEDS ORDERED: BENADRYL 50 MG/ML IV PRN (10:00)
[2019-02-03] MEDS ORDERED: CLARITIN 10 MG PO PRN (10:00)
[2019-02-03] MEDS: PHENERGAN 25 MG PO SCH ×2 (10:00→21:11)
[2019-02-03] MEDS ORDERED: DEMEROL 50 MG IV PRN (10:00)
[2019-02-03] MEDS ORDERED: Zofran 4 MG/2 ML VIAL IV PRN (10:00)
[2019-02-03] MEDS ORDERED: MORPHINE SULFATE 2 MG INJ IV PRN (10:00)
[2019-02-03] MEDS: FEOSOL 325 MG PO SCH (10:00)
[2019-02-03] MEDS ORDERED: Nubain 10 MG/ML IV PRN (10:00)
[2019-02-03] MEDS ORDERED: FERREX 150 PO SCH (10:00)
[2019-02-03] MEDS ORDERED: DEMEROL 50 MG ONE (10:03)
[2019-02-03 10:09] LABS: Appearance SLIGHTLY CLOUDY (CLEAR); Bilirubin NEGATIVE (NEGATIVE); Blood NEGATIVE Ery/ul (0-5); Epithelial Cells FEW /HPF (FEW); Glucose NEGATIVE (NEGATIVE); Ketones NEGATIVE (NEGATIVE); Leukocyte Esterase NEGATIVE (NEGATIVE); Nitrite NEGATIVE (NEGATIVE); Protein,Urine Dip NEGATIVE (Negative); Specific Gravity 1.003 (1.005-1.025); Urobilinogen NEGATIVE mg/dL (0-1)
[2019-02-03] MEDS: VANCOCIN 1 GM VIAL*** 1 GM in Sodium Chloride 0.9% 250 ML 250 ML IV SCH ×2 (10:38→22:00)
[2019-02-03] MEDS ORDERED: Adacel Vial IM ONE (12:00)
[2019-02-03] MEDS: Colace 100 MG PO SCH ×2 (13:13→21:10)
[2019-02-03] MEDS: THERAGRAN MULTIVITAMIN PO SCH (13:14)
[2019-02-03] MEDS: Dextrose 5%-Lr IV Solution 1000 ML 1,000 ML IV SCH (15:00)
[2019-02-03 21:08] LABS: BASOPHIL % 0.1 % (0.0-0.4); Basophil (Absolute #) 0.02 (0-0.4); Eosinophil % 0.1 % (0.00-5.0); Eosinophil (Absolute #) 0.02 (0-0.5); Granulocytes % 85.9 % (36.0-66.0); Hematocrit 23.3 % (35-47); Hemoglobin 7.4 gm/dl (12.0-16.0); Lymphocyte (Absolute #) 1.21 (1.0-4.6); Lymphocytes % 8.6 % (24.0-44.0); Mean Corpuscular Hemoglobin 28.9 pg (26-32); Mean Corpuscular Hgb Concent. 31.8 g/dl (32-36); Mean Platelet Volume 10.6 fl (6-9.5); Monocyte (Absolute #) 0.74 (0.0-1.3); Monocytes % 5.3 % (0.0-12.0); Platelet Count 223 K/mm3 (150-450); Red Blood Count 2.56 M/mm3 (4.1-5.4); Red Cell Distribution Width 14.8 % (11.5-14.0); White Blood Count 14.1 K/mm3 (4.0-10.5)
[2019-02-03] MEDS: MOTRIN 400 MG PO PRN (21:11)
[2019-02-03] MEDS: Mylicon 80MG PO PRN (21:11)
[2019-02-04] MEDS: PERCOCET TABLET 5/325MG PO PRN ×2 (00:15→04:15)
[2019-02-04] MEDS: Dextrose 5%-Lr IV Solution 1000 ML 1,000 ML IV SCH ×3 (01:28→02:10)
[2019-02-04] MEDS: Merrem 1 GM 1 G in Sodium Chloride 100ML MINI-BAG PLUS 100 ML IV SCH ×3 (02:52→19:12)
[2019-02-04] MEDS: MOTRIN 400 MG PO PRN ×4 (04:15→23:08)
[2019-02-04] MEDS ORDERED: Sodium Chloride 0.9% 1000 ML 1,000 ML IV SCH (07:30)
[2019-02-04] MEDS: VANCOCIN 1 GM VIAL*** 1 GM in Sodium Chloride 0.9% 250 ML 250 ML IV SCH ×2 (08:14→21:49)
[2019-02-04 08:28] VITALS: O2SAT 98
[2019-02-04 08:53] LABS: CROSS MATCH (PRBC) COMPATIBLE (COMPATIBLE)
[2019-02-04] MEDS ORDERED: Ambien 10 MG PO PRN (09:27)
[2019-02-04] MEDS ORDERED: Restoril 15 MG PO PRN (09:27)
[2019-02-04] MEDS: PHENERGAN 25 MG PO SCH ×2 (10:00→21:06)
--- NOTE | 2019-02-04 10:31 | OP ---
SURGERY DATE/TIME: 02/03/2019 0805 PREOPERATIVE DIAGNOSES: 1) History of prior section. 2) Term intrauterine . 3) Gestational diabetes. 4) Complicated urinary tract infection recently. 5) Desires permanent sterilization. POSTOPERATIVE DIAGNOSES: 1) History of prior section. 2) Term intrauterine . 3) Gestational diabetes. 4) Complicated urinary tract infection recently. 5) Desires permanent sterilization. PROCEDURES: 1) Repeat low transverse section. 2) Bilateral tubal ligation. SURGEON: Jakob Logan M.D. ESTIMATED BLOOD LOSS: 500 cc. IV FLUIDS: 2 liters of crystalloid. URINE OUTPUT: 200 cc of clear straw-colored urine. ANESTHESIA: Spinal by Daniel Snow CRNA. SPECIMENS: Bilateral fallopian tube segments. DESCRIPTION OF PROCEDURE: After informed written consent was obtained, the patient was taken to the operating room. She underwent spinal anesthesia and was prepped and draped in the usual sterile fashion. A horizontal skin incision was made through the prior scar through the subcutaneous fat to the level of the fascia. The fascia was nicked on both sides of the midline and extended in horizontal using curved Kent scissors. The superior free edge of the fascia was grasped with Juan clamps and the underlying rectus muscles were dissected free. The same was repeated inferiorly. The peritoneal cavity was opened bluntly. There was a large amount of omentum with respect to the lower uterine segment which was taken down to some degree but proved very difficult with close proximity of the bladder. The decision was made to make a higher uterine incision than normal especially since the patient was having a tubal ligation during the procedure. Horizontal incision was made by knife and carried down to the amniotic membranes which were carefully artificially ruptured. A viable male was delivered from the vertex presentation with a loose nuchal cord x1. The cord was clamped and cut. Simultaneously the oropharynx and nares were bulb suctioned free. At that point Dr. Leon robed and scrubbed to attend to the . The uterus was then exteriorized and the placenta was manually removed. The uterine cavity was sponge curetted clean with a lap sponge and the uterine incision was closed with #1 chromic in a running locked fashion. Good closure and good hemostasis were achieved. 0 Vicryl was used to reinforce any area where there was some bleeding and there was figure-of-8 needed just below the incision line to control some bleeding but all and all good hemostasis good hemostasis and good closure were achieved. Next, left fallopian tube was grasped with a [place] and cautery used to make a window in the mesoappendix. The proximal and distal tube segments of the tube were then ligated with chromic tie and the interceding tube segment was dissected free with Metzenbaum scissors. The free edge of the tube was then cauterized with electrocautery on proximal and distal tube segments. The same was repeated on the right side with no complications. The posterior cul-de-sac was wiped free of blood and clot with a moist lap sponge. The uterus was returned to the peritoneal cavity. Lateral gutters were wiped free of blood and clot. The uterine incision was noted to be hemostatic again with good closure. Next, the fascia was closed with 0 Vicryl in a running fashion good closure and good hemostasis were achieved. Any areas of bleeding in the subcutaneous fat were cauterized with electrocautery after warm, sterile saline was used to irrigate the subcutaneous fat. Finally, the skin layer was closed with 4-0 undyed Vicryl in running subcuticular fashion. Steri-Strips and occlusive dressing were placed over the incision. The patient was transferred to the recovery room in good condition.
[2019-02-04] MEDS: Colace 100 MG PO SCH ×2 (11:05→21:05)
[2019-02-04] MEDS: FEOSOL 325 MG PO SCH (11:05)
[2019-02-04] MEDS: THERAGRAN MULTIVITAMIN PO SCH (11:05)
[2019-02-04] MEDS: NORCO 5/325 MG PO PRN ×2 (16:24→21:05)
[2019-02-04] MEDS ORDERED: TROUGH DRUG LEVELS IJ ONE (20:30)
[2019-02-04 20:41] LABS: Hematocrit 28.4 % (35-47)
[2019-02-04 20:43] LABS: Hemoglobin 9.3 gm/dl (12.0-16.0)
[2019-02-04] MEDS: Mylicon 80MG PO PRN (23:19)
[2019-02-05] MEDS: Merrem 1 GM 1 G in Sodium Chloride 100ML MINI-BAG PLUS 100 ML IV SCH (02:01)
[2019-02-05] MEDS: NORCO 5/325 MG PO PRN ×2 (02:01→06:01)
[2019-02-05] MEDS: MOTRIN 400 MG PO PRN (06:02)
[2019-02-05 06:04] LABS: BASOPHIL % 0.1 % (0.0-0.4); Basophil (Absolute #) 0.01 (0-0.4); Granulocyte Absolute (ANC) 7.07 (1.4-6.9); Granulocytes % 70.5 % (36.0-66.0); Hematocrit 29.4 % (35-47); Hemoglobin 9.3 gm/dl (12.0-16.0); Lymphocyte (Absolute #) 2.28 (1.0-4.6); Lymphocytes % 22.7 % (24.0-44.0); Mean Cell Volume 91.9 fl (78-100); Mean Corpuscular Hgb Concent. 31.6 g/dl (32-36); Mean Platelet Volume 11.2 fl (6-9.5); Monocyte (Absolute #) 0.47 (0.0-1.3); Monocytes % 4.7 % (0.0-12.0); Platelet Count 205 K/mm3 (150-450); Red Cell Distribution Width 15.4 % (11.5-14.0)
--- NOTE | 2019-02-05 08:27 | PCM.DS ---
Discharge Summary Date of Admission: 02/03/19 00:01 Admitting Physician: LAI LEE Consults: Consults on Case 02/03/19 00:00 Notify Physician OF ADMISSION 02/03/19 00:04 Notify Anesthesia Provider ROUTINE 02/03/19 09:22 Notify Anesthesia Provider PRN Primary Care Provider: LAI LEE Allergies Allergies tramadol Allergy (Mild, Verified 01/31/19 14:50) Swelling Hospital Summary - Hospital Course Hospital Course: Pt came in as 23 yo pt with pre-existing DM, at 37w 4d for UTI. She had been having back pain, abd pain, and vomiting. Culture at outside hospital grew Kocuria kristinae, multidrug resistant (not cultured). She was started on meropenem and vancomycin. She was scheduled for repeat on 02/05/19 so we decided to do the on 02/03/19 when she was 38 weeks. She had her c- section by Dr. Logan (for full details, see his dictated note). She did have some above average blood loss (we had discussed the possibility of transfusion since her pre-surgery hgb was around 9.5). On her first post day her hgb was 7.4 so she was transfused 2 units PRBC and her hgb returned to 9.3. Her baby is bottle feeding. She is feeling better today after receiving blood. No vomiting. Deb po well. - Vitals & Intake/Output Vital Signs: Vital Signs Temperature 98.5 F 02/05/19 05:00 Pulse Rate 106 H 02/05/19 05:00 Respiratory Rate 18 02/05/19 05:00 Blood Pressure 116/72 02/05/19 05:00 O2 Sat by Pulse Oximetry 98 02/04/19 08:05 Intake & Output: Intake & Output 02/02/19 02/03/19 02/04/19 02/05/19 11:59 11:59 11:59 11:59 Intake Total 3813 3272 8102 3675 Output Total 9824 Balance 3813 0614 3542 3678 Weight 89.811 kg - Lab Result Diagrams: 02/05/19 05:16 02/01/19 04:47 Lab Results-Last 24 Hrs: Accuchecks Date 02/05/19 Time 06:00 Accucheck Value: 117 Lab Results-Last 24 Hours 02/04/19 02/04/19 02/04/19 Range/Units 07:40 07:40 07:44 WBC (4.0-10.5) K/mm3 RBC (4.1-5.4) M/mm3 Hgb (12.0-16.0) gm/dl Hct (35-47) % MCV (78-100) fl MCH (26-32) pg MCHC (32-36) g/dl RDW (11.5-14.0) % Plt Count (150-450) K/mm3 MPV (6-9.5) fl Gran % (36.0-66.0) % Eos # (Auto) (0-0.5) Absolute Lymphs (auto) (1.0-4.6) Absolute Monos (auto) (0.0-1.3) Lymphocytes % (24.0-44.0) % Monocytes % (0.0-12.0) % Eosinophils % (0.00-5.0) % Basophils % (0.0-0.4) % Absolute Granulocytes (1.4-6.9) Basophils # (0-0.4) Vancomycin Trough (10-20) ug/mL Crossmatch COMPATIBLE COMPATIBLE COMPATIBLE (COMPATIBLE) 02/04/19 02/04/19 02/05/19 Range/Units 20:35 20:44 05:16 WBC 10.0 (4.0-10.5) K/mm3 RBC 3.20 L (4.1-5.4) M/mm3 Hgb 9.3 L D 9.3 L (12.0-16.0) gm/dl Hct 28.4 L 29.4 L (35-47) % MCV 91.9 (78-100) fl MCH 29.0 (26-32) pg MCHC 31.6 L (32-36) g/dl RDW 15.4 H (11.5-14.0) % Plt Count 205 (150-450) K/mm3 MPV 11.2 H (6-9.5) fl Gran % 70.5 H (36.0-66.0) % Eos # (Auto) 0.20 (0-0.5) Absolute Lymphs (auto) 2.28 (1.0-4.6) Absolute Monos (auto) 0.47 (0.0-1.3) Lymphocytes % 22.7 L (24.0-44.0) % Monocytes % 4.7 (0.0-12.0) % Eosinophils % 2.0 (0.00-5.0) % Basophils % 0.1 (0.0-0.4) % Absolute Granulocytes 7.07 H (1.4-6.9) Basophils # 0.01 (0-0.4) Vancomycin Trough 9.31 L (10-20) ug/mL Crossmatch (COMPATIBLE) Micro Results-Entire Visit: Microbiology 02/03/19 08:20 Urine Culture - Preliminary Catherized NO GROWTH TO DATE Accuchecks Date 02/05/19 Time 06:00 Accucheck Value: 117 - Procedures and Test Procedures and Tests throughout Hospitalization: Therapy Orders & Screens 02/03/19 08:59 Standby Routine Comment: Diagnosis: Repeat with Bilateral Tubal Ligation Discharge Exam General Appearance: no apparent distress, alert Neurologic Exam: oriented x 3, cooperative Eye Exam: eyes nml inspection Ears, Nose, Throat Exam: moist mucous membranes Respiratory Exam: normal breath sounds, lungs clear, No crackles/rales, No rhonchi, No wheezing Cardiovascular Exam: regular rate/rhythm, normal heart sounds, No murmur Gastrointestinal/Abdomen Exam: soft, normal bowel sounds, other (inferior umbilicus with purple macular discoloration. fundus firm inferior to umbilicus. wound with some bright red blood seeping to L. intact. no erythema.) Extremity Exam: normal inspection, No pedal edema, No swelling Skin Exam: normal color, warm, dry, No rash Final Diagnosis/Problem List - Final Discharge Diagnosis/Problem (1) caesarean section delivered Current Visit: Yes Status: Acute Assessment & Plan: She is doing well on post operative day #2. Home today. F/u in 1 week. (2) Anemia Current Visit: Yes Status: Chronic Assessment & Plan: back to baseline after transfusion. Home on iron. recheck in 1-2 mo. Code(s): D64.9 - ANEMIA, UNSPECIFIED (3) Diabetes mellitus Current Visit: Yes Status: Chronic Assessment & Plan: A1c at onset of was 6.6. She has been seeing Dr. Archer. Code(s): E11.9 - TYPE 2 DIABETES MELLITUS WITHOUT COMPLICATIONS (4) UTI (urinary tract infection) Current Visit: Yes Status: Acute Assessment & Plan: Today is day #6 of merrem and vanc - home today without any antibiotic. Code(s): N39.0 - URINARY TRACT INFECTION, SITE NOT SPECIFIED - Discharge Disposition: Home, Self-Care Condition: Stable Prescriptions: New Docusate Sodium 100 mg [Colace 100 MG] 100 mg PO BID capsule Ibuprofen 600 mg PO QID PRN #35 tablet MDD 4 PRN Reason: Pain Hydrocodone/APAP 5-325 Tab^^^ [[place] 5-325 Tablet^^^] 1 each PO Q4H #30 tablet MDD 6 Continue Vit#96/Ferrous Fum/FA [ Tablet] 1 tab PO DAILY Ferrous Sulfate 325 mg PO DAILY Promethazine HCl 25 mg [Phenergan 25 mg] 12.5 mg PO BID Ondansetron [Ondansetron Odt] 1 tab PO Q4HPRN PRN PRN Reason: Nausea Follow up with: LAI LEE [Primary Care Provider] - 1 Week
[2019-02-05 10:46] VITALS: BP 112/68; PULSE 94
== END 2019-02-05 09:30 | disposition home or self-care (01) | DRG 783 ==
LOC: OB 00:01 → OBSVTOIN 02-03 00:01
PROVIDERS: ADMIT Family Medicine; ATTEND Family Medicine
PROC: 10D00Z1 Extraction of Products of Conception, Low, Open Approach (ICD-10-PCS; principal; 2019-02-03)
PROC: 0UT70ZZ Resection of Bilateral Fallopian Tubes, Open Approach (ICD-10-PCS; 2019-02-03)
DX: O75.3 Other infection during labor (principal); O24.12 Pre-existing type 2 diabetes mellitus, in childbirth; E11.9 Type 2 diabetes mellitus without complications; O34.211 Maternal care for low transverse scar from previous cesarean delivery; Z3A.38 38 weeks gestation of pregnancy; Z37.0 Single live birth; Z30.2 Encounter for sterilization; D64.9 Anemia, unspecified
CPT/HCPCS: 36415; 36430; 64486; 64488; 76937; 76942; 80048; 80053; 80202; 80307; 81001; 82962; 84550; 85014; 85018; 85025; 85027; 85610; 85730; 86850; 86900; 86901; 86922; 87086; 87340; 88302; 90471; 90715; 94799; G0378; J0690; J1100; J2175; J2274; J2405; J2590; J2795; J3370; L0625; P9016; Q0162; A9270-GY

== ENCOUNTER 2019-02-09 21:42 | Emergency (ER) | payer OTHER ==
[2019-02-09 22:06] VITALS: BP 123/83; PULSE 67; O2SAT 97
--- NOTE | 2019-02-09 22:38 | ERPHSYRPT ---
- History of Present Illness Time Seen by Provider: 02/09/19 22:25 Source: patient Exam Limitations: no limitations Patient Subjective Stated Complaint: pt states, "I had a baby last Sunday and today I noticed a few blood clots and I'm having severe low back pain and the [place] are not touching it". Triage Nursing Assessment: pt alert and oriented, pleasant, ambulated to rm 7. Mom at bedside. Pt c/o passing blood clots on her pad today, 2 earlier today, and 4 more recently. Pt just had a baby on 02/03/19. Pt states, "I also have some black discharge". Pt c/o low back pain, u/a obtained. Pt took [place] at 1600 with no relief. Lungs clear, heart tones reg, abd soft with active bs x4 quad. Allergies/Adverse Reactions: tramadol Allergy (Mild, Verified 01/31/19 14:50) Swelling Home Medications: Ferrous Sulfate 325 mg PO DAILY 12/13/18 [History] Promethazine HCl 25 mg [Phenergan 25 mg] 12.5 mg PO BID 01/14/19 [History] Hydrocodone/APAP 5-325 Tab^^^ [[place] 5-325 Tablet^^^] 1 each PO Q4H PRN PRN MDD 6 02/09/19 [History] Ibuprofen 600 mg PO Q6-8HPRN PRN MDD 4 02/09/19 [History] Hx Tetanus, Diphtheria Vaccination/Date Given: Yes Hx Influenza Vaccination/Date Given: No Hx Pneumococcal Vaccination/Date Given: No - Review of Systems Constitutional: No Symptoms Respiratory: No Symptoms Cardiac: No Symptoms Genitourinary Symptoms: No Symptoms Musculoskeletal: Back Pain (bilateral) All Other Systems: Reviewed and Negative - Past Medical History Pertinent Past Medical History: Yes Neurological History: No Pertinent History ENT History: No Pertinent History, Macular Degeneration Cardiac History: No Pertinent History Respiratory History: No Pertinent History Endocrine Medical History: Diabetes Type I Musculoskeletal History: No Pertinent History GI Medical History: Gallbladder Disease History: No Pertinent History Psycho-Social History: No Pertinent History Female Reproductive Disorders: No Pertinent History Other Medical History: GESTATIONAL DM - Past Surgical History Past Surgical History: Yes Neuro Surgical History: No Pertinent History Cardiac: No Pertinent History Respiratory: No Pertinent History Gastrointestinal: Cholecystectomy Genitourinary: No Pertinent History Musculoskeletal: No Pertinent History Female Surgical History: Section, Other Other Surgical History: REMOVED FIBROID MASS FROM LEFT BREAST. x 3 - Social History Smoking Status: Former smoker How long have you smoked: 1 yr. Exposure to second hand smoke: Yes Alcohol Use: None Drug Use: none Patient Lives Alone: No Significant Family History: no pertinent family hx - Female History Hx Last Menstrual Period: 05/12/18 Hx Now: No - Nursing Vital Signs Nursing Vital Signs: Initial Vital Signs Temperature 98.2 F 02/09/19 21:42 Pulse Rate 67 02/09/19 21:42 Respiratory Rate 18 02/09/19 21:42 Blood Pressure 123/83 02/09/19 21:42 O2 Sat by Pulse Oximetry 97 02/09/19 21:42 Pain Scale Pain Intensity 0 - Physical Exam SpO2: 97 - Course Nursing assessment & vital signs reviewed: Yes Ordered Tests: Active Orders 24 hr Category Date Time Status CULTURE,URINE Stat Lab 02/09/19 22:30 Received UA W/RFX UR CULTURE Stat Lab 02/09/19 22:30 Completed Medication Summary Discontinued Medications Generic Name Dose Route Start Last Admin Trade Name Padmini PRN Reason Stop Dose Admin Trimethoprim/Sulfamethoxazole 1 tab 02/09/19 23:07 02/09/19 23:14 Bactrim Ds Tablet PO 02/09/19 23:08 1 tab STAT STA Administration Trimethoprim/Sulfamethoxazole Confirm 02/09/19 23:13 Bactrim Ds Tablet Administered 02/09/19 23:14 Dose 1 tab PO .STK-MED ONE Lab/Rad Data: Laboratory Results 02/09/19 Range/Units 22:30 Urine Color STRAW (YELLOW) Urine Appearance CLEAR (CLEAR) Urine pH 7.0 (5-6) Ur Specific [place] 1.006 (1.005-1.025) Urine Protein NEGATIVE (Negative) Urine Ketones NEGATIVE (NEGATIVE) Urine Blood LARGE (0-5) Octavio/ul Urine Nitrite NEGATIVE (NEGATIVE) Urine Bilirubin NEGATIVE (NEGATIVE) Urine Urobilinogen NEGATIVE (0-1) mg/dL Ur Leukocyte Esterase SMALL (NEGATIVE) Urine WBC (Auto) 6-10 (0-5) /HPF Urine RBC (Auto) 26-50 (0-2) /HPF U Epithel Cells (Auto) NONE (FEW) /HPF Urine Bacteria (Auto) NONE (NEGATIVE) /HPF U Non-Squamous Epi Cells RARE (FEW) /HPF Urine Mucus (Auto) SLIGHT (NEGATIVE) /HPF Urine Culture Reflexed YES (NO) Urine Glucose NEGATIVE (NEGATIVE) mg/dL - Progress Progress: improved Counseled pt/family regarding: lab results, diagnosis, need for follow-up - Departure Departure Disposition: Home Clinical Impression: UTI (urinary tract infection) Qualifiers: Urinary tract infection type: site unspecified Hematuria presence: with hematuria Qualified Code(s): N39.0 - Urinary tract infection, site not specified Condition: Good Critical Care Time: No Referrals: LAI LEE [Primary Care Provider] - Instructions: Urinary Tract Infection, Adult (DC) Prescriptions: Sulfamethoxazole/Trimethoprim [Bactrim Ds Tablet] 1 each PO BID #20 tablet
[2019-02-09 22:41] LABS: Appearance CLEAR (CLEAR); Bilirubin NEGATIVE (NEGATIVE); Blood LARGE Ery/ul (0-5); Glucose NEGATIVE (NEGATIVE); Ketones NEGATIVE (NEGATIVE); Leukocyte Esterase SMALL (NEGATIVE); Mucus SLIGHT /HPF (NEGATIVE); Nitrite NEGATIVE (NEGATIVE); Non-Squamous Epithelial Cells RARE /HPF (FEW); Protein,Urine Dip NEGATIVE (Negative); RBC 26-50 /HPF (0-2); Specific Gravity 1.006 (1.005-1.025); Urobilinogen NEGATIVE mg/dL (0-1)
[2019-02-09] MEDS ORDERED: BACTRIM DS TABLET PO STA (23:07)
[2019-02-09] MEDS ORDERED: BACTRIM DS TABLET PO ONE (23:13)
== END 2019-02-09 23:37 | disposition home or self-care (01) ==
LOC: ED 21:42
DX: N39.0 Urinary tract infection, site not specified (principal)
CPT/HCPCS: 81001; 87077; 87086; 87186; 99283; A9270-GY